=== PATIENT | male | born 2000 | race Caucasian/White ===

== ENCOUNTER 2019-01-22 10:16 | Emergency (ER) | payer MEDICAID | END 2019-01-22 11:15 | disposition home or self-care (01) | LOC: FTE 11:15 | DX: L02.212 Cutaneous abscess of back [any part, except buttock and flank] (principal) | CPT/HCPCS: 99283; Z7502 ==

== ENCOUNTER 2019-01-24 11:08 | Emergency (ER) | payer MEDICAID ==
[2019-01-24] MEDS: IBUPROFEN 800 MG TAB PO (11:49)
== END 2019-01-24 12:14 | disposition home or self-care (01) ==
LOC: FTE 11:08
DX: L02.31 Cutaneous abscess of buttock (principal)
CPT/HCPCS: 10060; 99282-25

== ENCOUNTER 2019-01-26 14:52 | Emergency (ER) | payer MEDICAID | END 2019-01-26 16:33 | disposition home or self-care (01) | LOC: FTE 16:33 | DX: L05.01 Pilonidal cyst with abscess (principal) | CPT/HCPCS: 99281; Z7502 ==